=== PATIENT | male | born 1950 | race Caucasian/White ===

== ENCOUNTER 2017-04-30 05:41 | Outpatient (CLI) | payer MEDICARE, OTHER ==
[2017-04-30] MEDS ORDERED: RIVA1PAT TD (15:00)
[2017-04-30] MEDS ORDERED: OMG1KC PO (15:00)
[2017-04-30] MEDS ORDERED: VERA180C4 PO (15:00)
[2017-04-30] MEDS ORDERED: BUPR-168 PO (15:00)
[2017-04-30] MEDS ORDERED: LISI1TAB8 PO (15:00)
[2017-04-30] MEDS ORDERED: VITA1CAP PO (15:00)
[2017-04-30] MEDS ORDERED: ASPI-586 PO (15:00)
[2017-04-30] MEDS ORDERED: MEMA5TAB PO (15:00)
[2017-04-30] MEDS ORDERED: LEVO88TA54 PO (15:00)
== END 2017-04-30 15:06 ==
LOC: PREOP 05:41
PROVIDERS: ATTEND Surgery
DX: Z01.818 Encounter for other preprocedural examination (principal); Z12.11 Encounter for screening for malignant neoplasm of colon; Z86.010 Personal history of colon polyps; Z80.0 Family history of malignant neoplasm of digestive organs

== ENCOUNTER 2017-05-02 08:03 | Day surgery (SDC) | payer MEDICARE, OTHER ==
[~2017-05-02] VITALS: Ht 180.3 cm; Wt 109.8 kg
[~2017-05-02 08:03] MED LIST: ASPI-586 PO; BUPR-168 PO; LEVO88TA54 PO; LISI1TAB8 PO; MEMA5TAB PO; OMG1KC PO; RIVA1PAT TD; VERA180C4 PO; VITA1CAP PO
[2017-05-02] MEDS ORDERED: NS IV 500 ML 500 ML IV PRN (08:30)
[2017-05-02] MEDS ORDERED: LIDOCAINE JELLY 2% (XYLOCAINE) 5 ML TUBE MM PRN (08:30)
[2017-05-02 08:47] VITALS: BP 161/85
[2017-05-02] MEDS ORDERED: MIDAZOLAM 2 MG/2 ML (VERSED) VIAL ONE ×6 (09:46→10:02)
[2017-05-02] MEDS ORDERED: fentaNYL INJECTION 100 MCG/2 ML AMP ONE ×2 (09:46)
[2017-05-02] MEDS ORDERED: LIDOCAINE JELLY 2% (XYLOCAINE) 5 ML TUBE ONE (09:46)
[2017-05-02] MEDS: fentaNYL INJECTION 100 MCG/2 ML AMP IVP PRN ×2 (09:51→09:53)
[2017-05-02] MEDS: MIDAZOLAM 2 MG/2 ML (VERSED) VIAL IVP PRN ×6 (09:52→10:18)
--- NOTE | 2017-05-02 10:01 | Conscious Sedation/ASA ---
Conscious Sedation Pre-Proced Time Reviewed: 09:15 ASA Class: 2 Airway Mallampati Classification: (eek appropriate class) I. II. III, IV Lungs Heart ASA score ASA 1: a normal healthy patient ASA 2: a patient with a mild systemic disease (mid diabetes, controlled hypertension, obesity ASA 3: a patient with a severe systemic disease that limits activity (angina , COPD, prior Myocardial infarction) ASA 4: a patient with an incapacitating disease that is a constant threat to life (CHF, renal failure) ASA 5: a moribund patient not expected to survive 24 hrs. (ruptured aneurysm) ASA 6: a declared brain patient whose organs are being harvested. For emergent operations, add the letter E after the classification Grade 2 Sedation Plan: Analgesia, Amnesia, Plan communicated to team members, Discussed options with patient/fam, Discussed risks with patient/fam Note The patient is an appropriate candidate to undergo the planned procedure, sedation, and anesthesia. The patient immediately re-assessed prior to indication. MONA ARANDA MD May 02, 2017 10:01 am
--- NOTE | 2017-05-02 10:01 | Progress Note-Pre Operative ---
Pre-Operative Progress Note H&P Reviewed The H&P was reviewed, patient examined and no changes noted. Date Seen by Provider: May 02, 2017 Time Seen by Provider: 09:15 Date H&P Reviewed: May 02, 2017 Time H&P Reviewed: 09:15 Pre-Operative Diagnosis: hx polyp, family hx colon ca MONA ARANDA MD May 02, 2017 10:01 am
[2017-05-02] MEDS ORDERED: HYDROcodone/APAP 5 MG/325 MG (LORTAB) TAB PO PRN (10:15)
[2017-05-02] MEDS ORDERED: morphine INJ 10 MG/ML 1ML (SYR OR VIAL) IV PRN (10:15)
[2017-05-02] MEDS ORDERED: ACETAMINOPHEN 325 MG TABLET/CAPLET (TYLENOL) PO PRN (10:15)
[2017-05-02] MEDS ORDERED: ONDANSETRON 4 MG/2 ML (SDV) Z0FRAN IV PRN (10:15)
[2017-05-02 10:25] VITALS: BP 117/78
--- NOTE | 2017-05-02 10:46 | Progress Note-Post Operative ---
Post-Operative Progess Note Surgeon (s)/Competitive Intelligence Analyst (s) Surgeon MONA ARANDA MD Competitive Intelligence Analyst: none Pre-Operative Diagnosis hx polyp, family hx colon ca Post-Operative Diagnosis chronic stage 2 ext and int hemorrhoids, HP polyp descending colon x2, ascending colon. Procedure & Operative Findings Date of Procedure 05/02/17 Procedure Performed/Findings Colonoscopy with polypectomy Anesthesia Type CS Estimated Blood Loss Estimated blood loss (mL): minimal Specimens/Packing Specimens Removed descending polyp x2, ascending polyp x1 MONA ARANDA MD May 02, 2017 10:46 am
--- NOTE | 2017-05-02 10:48 | Discharge Inst-Surgical ---
D/C Lap Instructions-ROSI Follow Up 5 years Activity as tolerated High Fiber Diet 25g or more per day Avoid Alcohol, Caffeine, Spicy [place] and Acid foods. Drink 64 fluid oz or more of fluids per day. Symptoms to Report: Fever over 101 degree F, Nausea/Vomiting If any problems/questions: Contact your physician or go to Emergency Room MONA ARANDA MD May 02, 2017 10:48 am
[2017-05-02 10:55] VITALS: BP 119/74
[2017-05-02 11:30] VITALS: BP 119/74
--- NOTE | 2017-05-03 10:33 | PROCEDURE REPORT ---
PROCEDURE PHYSICIAN: MONA ARANDA DATE OF PROCEDURE: 05/02/2017 ATTENDING PRIMARY CARE PHYSICIAN: Dr. Bentley. PREOPERATIVE DIAGNOSIS: 1. Personal history of colon polyps. 2. Family history of colon cancer. POSTOPERATIVE DIAGNOSES: 1. Chronic, stage II external and internal hemorrhoids. 2. Two hyperplastic polyps of the descending colon each approximately 1 to 2 mm in size. 3. Small pedunculated polyp of the ascending colon, approximately 2 mm in size. DISPOSITION: The patient tolerated the procedure well. Mr. Alex Cm is a 66-year-old male in need of a follow-up colonoscopy. He has had 3 colonoscopies in the past and reports that each of those polyps were identified, biopsied and found to be benign. He does report a family history of colon cancer with his mother having the disease and being diagnosed in her 80s. He reports that for the most part he is doing well and does not report any major issues with diarrhea nor constipation, as well as no red blood per rectum nor any dark tarry stools. The patient was brought to the endoscopy suite, laid in the left lateral decubitus position. After adequate IV pain and sedative medications and conscious sedation anesthesia, a digital rectal examination was performed. Mild chronic, stage II external and internal hemorrhoids were identified which were not actively edematous or inflamed and no bleeding. Normal sphincter tone was felt and there were no palpable masses. The prostate was palpable and appeared normal. The endoscope was then intubated into the anus and the rectum gently insufflated. The endoscope was then advanced through the valves of Lew of the rectum with no polyps or any neoplasms identified. The endoscope was then advanced through the sigmoid colon where no diverticulosis identified. We then proceeded to the descending colon and at approximately the splenic flexure two hyperplastic polyps, which were adjacent to each other identified. These were small and approximately 1 to 2 mm in size and appeared benign. Both of these were biopsied and destroyed using forceps and electrocautery with visualization of good hemostasis. The endoscope was then advanced through the transverse colon and into the ascending colon. At the ascending colon a small pedunculated polyp identified. This was biopsied and removed at its stalk using forceps and electrocautery with visualization of good hemostasis. The endoscope was then advanced through the cecum which was normal. The endoscope was slowly withdrawn while taking a second look and suctioning of residual air with no additional findings. The patient tolerated the procedure well. We will recommend continued medical management with a high fiber diet with at least 30 grams of fiber per day, as well as at least 64 fluid ounces of water daily to promote soft stools on a daily basis. Due to his personal history of polyps as well as family history of colon cancer, we will recommend a follow-up colonoscopy in approximately 5 years. Job ID: [id number] Dictated Date: 05/02/2017 10:51:21 Intelligence Agent Date: 05/03/2017 10:24:07 / nader
== END 2017-05-02 11:30 | disposition home or self-care (01) ==
LOC: ENDO 08:03
PROVIDERS: ATTEND Surgery
DX: K63.5 Polyp of colon (principal); K64.1 Second degree hemorrhoids; Z80.0 Family history of malignant neoplasm of digestive organs; I10 Essential (primary) hypertension; E03.9 Hypothyroidism, unspecified; F03.90 Unspecified dementia, unspecified severity, without behavioral disturbance, psychotic disturbance, mood disturbance, and anxiety; Z79.899 Other long term (current) drug therapy

== ENCOUNTER 2019-11-10 09:51 | Outpatient (CLI) | payer OTHER ==
[~2019-11-10] VITALS: Ht 180 cm; Wt 116.6 kg
[~2019-11-10 09:51] MED LIST changes: +LISI1TAB25 PO; -LISI1TAB8 PO
[2019-11-10 10:11] VITALS: BP 135/72
== END 2019-11-10 15:00 | disposition home or self-care (01) ==
LOC: PREOP 09:51
PROVIDERS: ATTEND Podiatrist Foot & Ankle Surgery
DX: Z01.818 Encounter for other preprocedural examination (principal)
CPT/HCPCS: 87081

== ENCOUNTER 2019-11-14 06:00 | Day surgery (SDC) | payer OTHER ==
[~2019-11-14] VITALS: Ht 118 cm; Wt 116.6 kg
[2019-11-14] VITALS (12 sets, daily range): BP systolic 111–177; BP diastolic 69–85
[2019-11-14] MEDS ORDERED: LACTATED RINGERS 1,000 ML IV PRN (06:05)
[2019-11-14] MEDS ORDERED: ceFAZolin INJECTION 1,000 MG in WATER (STERILE) FOR INJECTION 10 ML IV ONE (06:15)
[2019-11-14] MEDS ORDERED: proPOfol 200 MG/20 ML (DIPRIVAN) VIAL IV ONE (06:51)
[2019-11-14] MEDS ORDERED: MIDAZOLAM 2 MG/2 ML (VERSED) VIAL ONE (06:51)
[2019-11-14] MEDS ORDERED: LIDOCAINE PF 2% 5 ML (XYLOCAINE) VIAL ONE (06:51)
[2019-11-14] MEDS ORDERED: SEVOFLURANE (ULTANE) 15 ML INHAL SOLN ONE ×2 (06:51→10:16)
[2019-11-14] MEDS ORDERED: fentaNYL INJECTION 100 MCG/2 ML AMP ONE ×2 (06:51→08:32)
[2019-11-14] MEDS ORDERED: ONDANSETRON 4 MG/2 ML (SDV) Z0FRAN ONE (06:51)
[2019-11-14] MEDS ORDERED: BUPIVACAINE 0.5% 30 ML (SENSORCAINE) VIAL ONE (07:07)
[2019-11-14] MEDS ORDERED: HYDROmorphone 2 MG/ML VIAL (DILAUDID) ONE (09:13)
[2019-11-14] MEDS ORDERED: DEXAMETHASONE 10 MG/ML (DECADRON) 1 ML VIAL ONE (10:15)
--- NOTE | 2019-11-14 10:53 | Progress Note-Pre Operative ---
Pre-Operative Progress Note H&P Reviewed The H&P was reviewed, patient examined and no changes noted. Date Seen by Provider: Nov 14, 2019 Time Seen by Provider: : Date H&P Reviewed: Nov 14, 2019 Time H&P Reviewed: : Pre-Operative Diagnosis: Hallux Valgus left CHARISSE VALADEZ DPM Nov 14, 2019 10:53
[2019-11-14] MEDS ORDERED: LACTATED RINGERS 1,000 ML IV SCH (10:58)
--- NOTE | 2019-11-14 10:58 | Progress Note-Post Operative ---
Post-Operative Progess Note Surgeon (s)/Chief Clerk (s) Surgeon CHARISSE VALADEZ DPM Chief Clerk: none Pre-Operative Diagnosis Hallux Valgus left Post-Operative Diagnosis Same Procedure & Operative Findings Date of Procedure 11/14/19 Procedure Performed/Findings Lapidus-Aris bunionectomy, left Anesthesia Type General Estimated Blood Loss Estimated blood loss (mL): Minimal Specimens/Packing Specimens Removed Soft tissue from left 1st MTPJ (Tophi) CHARISSE VALADEZ DPM Nov 14, 2019 10:58
[2019-11-14] MEDS ORDERED: HYDROcodone/APAP 5 MG/325 MG (LORTAB) TAB PO PRN (11:00)
[2019-11-14] MEDS ORDERED: morphine INJ 10 MG/ML 1ML (SYR OR VIAL) IVP ONE (11:00)
[2019-11-14] MEDS ORDERED: HYDROmorphone 2 MG/ML VIAL (DILAUDID) IV ONE (11:00)
[2019-11-14] MEDS ORDERED: ONDANSETRON 4 MG/2 ML (SDV) Z0FRAN IVP PRN (11:00)
[2019-11-14] MEDS ORDERED: ACHD5005 PO ×2 (11:01→12:09)
[2019-11-14] MEDS ORDERED: CEPH500C PO (11:01)
--- NOTE | 2019-11-14 12:11 | Diagnostic Imaging Report ---
INDICATION: Undergoing foot surgery. TECHNIQUE: Two intraprocedural images left foot. FINDINGS/ IMPRESSION: The hospital radiology department provided fluoroscopic imaging for the clinical service in support of an interventional procedure. A radiologist was not involved in the procedure. Please reference the operating provider's procedure note. FLUOROSCOPY TIME: 14.4 seconds. Intraoperative imaging demonstrates surgical changes of the first digit. This includes arthrodesis of plate and screws across the first tarsometatarsal digit. An additional pin also transfixes the joint. Alignment appears to be anatomic. Advanced degenerative changes about the first MTP joint. Small amount of gas collection is noted in this region. Dictated by: Dictated on workstation # [id number]
--- NOTE | 2019-11-14 12:33 | Diagnostic Imaging Report ---
INDICATION: Postoperative. TECHNIQUE: Two views of the left foot. CORRELATION STUDY: None. FINDINGS: Postop changes with placement of a plate and multiple screws across the first tarsometatarsal articulation. Alignment appears to be near-anatomic. Additional osteotomy changes at the proximal phalanx of the great toe with a single cerclage wire along its medial aspect. Alignment is generally stable. Partial resection of the medial first metatarsal head. Some bone fragmentation noted in and around the first MTP joint. Additional degenerative changes through the tarsometatarsal articulations. Mildly prominent plantar calcaneal spur. IMPRESSION: 1. Postoperative changes of the first digit. Dictated by: Dictated on workstation # [id number]
--- NOTE | 2019-11-14 12:47 | Physical Therapy Ortho Eval ---
PT Orthopedic Evaluation Type of Surgery hallux valgus left foot Prior Level of Function Current Living Status: Spouse Locomotion (Upon Admit): Independent Established Durable Medical Eq: Front Wheeled Walker Subjective Subjective Agrees to PT. Reprots he has crutches, walker and a knee scooter at home. Plans to use the walker and knee scooter. Entry Into Home: Stairs With Railing Steps Into Home: 6 Steps Inside Home: 0 Motor Control Motor Control: Motor Control WNL ROM ROM: WFL Strength Strength: WFL Transfer Pt able to complete bed mobiltiy without assist. Pt is SBA with sit to stand transfers. present and voices she will be available to assist as needed. Gait Gait Assistive Device: FWW Right Lower Extremity: Right Weight Bearing Status RLE: Full Weight Bearing Left Lower Extremity: Left Weight Bearing Status LLE: Non Weight Bearing (heel contact for balance only) Summary/Comments pt able to hop 50 ft with FWW with SBA and maintains NWB status. Pt and educated in stair training. Pt hopped up/down 3 steps with handrail right and walker left to go up; CGA provided but no kevin LOB noted. Pt and verbalized they felt they could manage. Their son will be home later and if necessary, they will wait for him to try to enter the house. Treatment Rendered Treatment: Gait Train, Step Train Assessment/Goals Goal Time Frame: 1 Visit Safe Ambulation: Yes Slightly unsteady due to new NWB status but no kevin LOB noted. Gait belt given to the patient;s , she reports she has used them before. Reports she will use it if needed. In addition, for the bulk of mobility, pt plans to use knee scooter. Plan Treatment Plan: Discharge Time Time In: 1210 Time Out: 1240 Total Billed Treatment Time: 30 Billed Treatment Time visit EVM 30 GIOVANI KANG PT Nov 14, 2019 12:47
--- NOTE | 2019-11-14 13:17 | Anesthesia-General Post-Op ---
General Patient Condition Mental Status/LOC: Same as Preop Cardiovascular: Satisfactory Nausea/Vomiting: Absent Respiratory: Satisfactory Pain: Controlled Complications: Absent Post Op Complications Complications None Follow Up Care/Instructions Patient Instructions None needed. Anesthesia/Patient Condition Patient Condition Patient was seen this morning after the procedure and he was doing well, no complaints, stable vital signs, no apparent adverse anesthesia problems. KAYLEE LYNN DO Nov 14, 2019 13:17
--- NOTE | 2019-11-14 16:22 | OPERATIVE REPORT ---
DATE OF SERVICE: 11/14/2019 SURGEON: Yazmin Valadez DPM PREOPERATIVE DIAGNOSIS: Hallux abductovalgus metatarsal primus varus, left foot. POSTOPERATIVE DIAGNOSIS: Hallux abductovalgus metatarsal primus varus, left foot. PROCEDURE: Modified Lapidus Aris bunionectomy, left foot. WOUND CLASS: Clean. ANESTHESIA: General. HEMOSTASIS: Pneumatic thigh tourniquet at 300 mmHg. INDICATIONS: This 68-year-old presents complaining of a painful left foot. It is a painful bunion for several years and getting progressively worse. He does have a history of gout. Conservative therapy is met with unsatisfactory results and the patient is agreeable to surgical intervention after risks and complications were discussed at length. No guarantees were extended to the patient and he is willing to proceed. DESCRIPTION OF PROCEDURE: The patient was brought back to the operating room table, placed in secure supine position. Appropriate timeout was performed. General anesthetic was then induced. The left foot was prepped and draped in normal sterile manner. A thigh tourniquet was placed on the left lower extremity over several layers of padding. The left foot was then anesthetized utilizing 10 mL of 0.5% Marcaine injected in a Pike block. Attention was then directed to the dorsal aspect of the left first metatarsal cuneiform joint where a 6 cm longitudinal linear incision was created. The incision was deepened in the same plane with great care to identify and retract all vital neurovascular structures. All the necessary blood vessels were cauterized as encountered. The incision was deepened down to the capsular tissue to the first metatarsal medial cuneiform joint, medial to the extensor hallucis longus tendon. The incision was deepened in the same plane down to the joint itself where two bone cuts were created, first bone cut was to the base of the first metatarsal perpendicular to the long axis of the first metatarsal. The second cut was to the distal medial cuneiform and it was cut perpendicular to the long axis of the second metatarsal, but with a biased from smaller wedge dorsally to a larger wedge plantarly of approximately 2 mm, allowing for some plantar flexion of the first metatarsal as well as correction of the first intermetatarsal angle. Once the bone fragments were articular cartilage and bone fragments were removed. Fenestration was performed to the base of the first metatarsal and medial cuneiform. It was found that there is going to be inadequate length noted on x-ray and a bone graft allograft was supplied from [employer]. It was an 8 mm width of graft excellent realignment of the first ray was noted on intraoperative x-ray. Temporary fixation was applied. The [employer] Lapidus small span plate was a 4-hole was applied to the arthrodesis site. The most proximal screws were 3.5 locking screws of 18 and 20 mm of length. Next, an interfrag screw was applied, cannulated 3.5 screw of 48 mm of length driven from distal to plantar proximal with excellent compression noted across the joint. The distal nonlocking 3.5 screw was 16 mm of length applying additional compression across the arthrodesis site. The final two distal screws were locking 3.5 screws of 18 and 20 mm of length. The wound was flushed with copious amounts of normal saline and closed in layers. The deep closure was performed with 3-0 Vicryl, superficial with 4-0 Vicryl and skin closed with 4-0 Prolene in a horizontal mattress type stitch. Attention was then directed to the dorsal aspect of the left first metatarsophalangeal joint where a 6 cm longitudinal linear incision was created. The incision was deepened in the same plane with great care to identify and retract all vital neurovascular structures. Only necessary blood vessels were cauterized as encountered. A longitudinal capsulotomy was performed exposing copious amounts of white chalky material grossly identified to be tophi. Much of the tophi was debrided as possible. A large medial eminence of the first metatarsal head was reduced with a power sagittal saw and further contoured and smoothed with power cookie. A blunt dissection was carried out to the first intermetatarsal space with a lateral capsulorrhaphy performed as well as release of the conjoint tendon of the adductor hallucis. Attention was then directed to the dorsal aspect of the proximal phalanx, left hallux where a subperiosteal dissection was carried out. A wedge of bone was resected with the base medial and the lateral cortices held intact. Once the wedge of bone was resected, the gap closed and there is improvement to the hallux alignment and the transverse plane. Next, two commercial drone pilot holes were created to the dorsal medial aspect of the first digit proximal phalanx osteotomy. A 28-gauge monofilament wire was then passed through the commercial drone pilot hole securing the osteotomy in a closed position. Excellent bony apposition and fixation was appreciated at this time. The wound was flushed with copious amounts of normal saline throughout the procedure and closure was then performed in layers. Deep closure was performed with 3-0 Vicryl, superficial with 4-0 Vicryl, skin closed with 4-0 Prolene in a horizontal mattress type stitch. Postoperative injection consisted of 10 mL of 0.5% Marcaine plain injected in a Pike block as well as 10 mg dexamethasone injected into the first metatarsophalangeal joint area. Postoperative dressing consisted of Betadine soaked Adaptic, sterile 4 x 4, sterile Kerlix all secured with Coban wrap. The patient tolerated the anesthesia and procedure well, was transported from the operating room to the recovery area with vital signs stable and vascular status intact to all digits of the left foot. The patient is to follow up in my office in 10 days' period of time or sooner if necessary. He was given a prescription for Keflex and Vicodin. Job ID: [id number] DocumentID: [id number] Dictated Date: 11/14/2019 12:06:38 Strike On Machine Operator Date: 11/14/2019 16:20:51 Dictated By: YAZMIN VALADEZ DPM
== END 2019-11-14 13:00 | disposition home or self-care (01) ==
LOC: SDC 06:00
PROVIDERS: ATTEND Podiatrist Foot & Ankle Surgery
DX: M20.12 Hallux valgus (acquired), left foot (principal); I10 Essential (primary) hypertension; G47.33 Obstructive sleep apnea (adult) (pediatric); E03.9 Hypothyroidism, unspecified; E66.9 Obesity, unspecified; F43.10 Post-traumatic stress disorder, unspecified; Z68.35 Body mass index [BMI] 35.0-35.9, adult; Z99.89 Dependence on other enabling machines and devices; Z87.891 Personal history of nicotine dependence; Z79.82 Long term (current) use of aspirin; Z79.899 Other long term (current) drug therapy
CPT/HCPCS: 73620; 87081

== ENCOUNTER 2022-02-22 05:35 | Outpatient (CLI) | payer MEDICARE ==
[~2022-02-22] VITALS: Ht 180.3 cm; Wt 119.9 kg
[~2022-02-22 05:35] MED LIST changes: +ACHD5005 PO; +CEPH500C PO; -LISI1TAB25 PO; +LISI1TAB46 PO
[2022-02-22] MEDS ORDERED: ALLO100T PO (14:38)
[2022-02-22] MEDS ORDERED: ASPI-999 PO (14:38)
== END 2022-02-22 16:34 | disposition home or self-care (01) ==
LOC: PREOP 05:35
PROVIDERS: ATTEND Surgery
DX: Z01.818 Encounter for other preprocedural examination (principal)

== ENCOUNTER 2022-03-01 08:50 | Day surgery (SDC) | payer MEDICARE, OTHER ==
--- NOTE | 2022-02-28 11:15 | HISTORY AND PHYSICAL ---
DATE OF SERVICE: ATTENDING PRIMARY CARE PHYSICIAN: Dr. Matheus Sheridan. PROCEDURE DATE: 03/01/2022. HISTORY OF PRESENT ILLNESS: The patient is a 71-year-old male who is known to us. He was seen in 04/2017 for a colonoscopy. At that time, he was found to have chronic stage III external and internal hemorrhoids, polyp of the distal descending, proximal descending and ascending colon. These were biopsied and consistent with tubular adenomas. On today's visit, he reports that he is in need of a screening colonoscopy. His last colonoscopy was 5 years ago, and he does report a family history of colon cancer with his mother having the disease in her 80s. He also reports a history of polyps in the past on his previous colonoscopies. He denies any diarrhea or constipation as well as no red blood in his stool. He denies any abdominal pain. PAST MEDICAL HISTORY: Hypertension, hypothyroidism, dementia, gout, obstructive sleep apnea. PAST SURGICAL HISTORY: Bilateral cataracts in 2012, lumbar spine decompression surgery 2017, bunionectomy and ORIF of the foot 2019. ALLERGIES: No known drug allergies. MEDICATIONS: Vitamin B complex, fish oil, aspirin 325 mg daily, rivastigmine 4.6 mg daily, bupropion 75 mg b.i.d., lisinopril/hydrochlorothiazide 20/12.5 b.i.d., verapamil 180 mg daily, levothyroxine 88 mcg daily, allopurinol 100 mg daily. SOCIAL HISTORY: Previous for tobacco smoke, quit in 1968. Social for alcohol. FAMILY HISTORY: Father, diabetes. Mother, colon cancer. Sister, ovarian cancer. Brother, lung cancer, myocardial infarction. VITAL SIGNS: Blood pressure is 132/78. Current weight 264.3 pounds, height 5 feet 11 inches. REVIEW OF SYSTEMS: Well-nourished male in no acute distress. He is not experiencing any shortness of breath or difficulty breathing. No chest pain, palpitations or diaphoresis. No nausea, vomiting or abdominal pain. No diarrhea or constipation. No red blood per rectum. No dark tarry stools. No fever or chills. No recent inadvertent weight loss. All other review of systems negative. PHYSICAL EXAMINATION: CHEST: Clear. Good breath sounds bilaterally. HEART: Regular, no murmur. EXTREMITIES: No lower extremity edema. Negative Homans sign. HEENT: No scleral icterus. NECK: No cervical lymphadenopathy. ABDOMEN: Soft, nontender, nondistended. SKIN: Warm, dry and pink. NEUROLOGIC: Awake, alert and oriented x3. ASSESSMENT AND PLAN: A 71-year-old male with a personal history of colon polyps as well as a family history of colon cancer with his mother having the disease. At this time, he does need a screening colonoscopy and we will proceed with scheduling him for a screening colonoscopy. Job ID: [id number] DocumentID: [id number] Dictated Date: 02/28/2022 10:44:21 Aerospace Quality Engineer Date: 02/28/2022 11:14:40 Dictated By: SARAH SCHMIDT APRN
[~2022-03-01] VITALS: Ht 180.3 cm; Wt 119.9 kg
[~2022-03-01 08:50] MED LIST changes: +ALLO100T PO; +ASPI-999 PO
[2022-03-01] MEDS ORDERED: LACTATED RINGERS 1,000 ML IV STA (08:51)
[2022-03-01] MEDS ORDERED: LIDOCAINE JELLY 2% 6 ML SYRINGE MM PRN (09:00)
[2022-03-01 09:15] VITALS: BP 141/75
[2022-03-01] MEDS ORDERED: PROPOFOL INJECTION 50 ML IV ONE (09:18)
--- NOTE | 2022-03-01 10:40 | Progress Note-Pre Operative ---
Pre-Operative Progress Note H&P Reviewed The H&P was reviewed, patient examined and no changes noted. Date Seen by Provider: March 01, 2022 Time Seen by Provider: 10:00 Date H&P Reviewed: March 01, 2022 Time H&P Reviewed: 10:00 Pre-Operative Diagnosis: screening/FH MONA ARANDA MD March 01, 2022 10:40
--- NOTE | 2022-03-01 10:41 | Discharge Inst-Surgical ---
D/C Lap Instructions-ROSI Follow Up Activity as tolerated High Fiber Diet 25g or more per day Avoid Alcohol, Caffeine, Spicy [place] and Acid foods. Drink 64 fluid oz or more of fluids per day. Symptoms to Report: Fever over 101 degree F, Nausea/Vomiting If any problems/questions: Contact your physician or go to Emergency Room MONA ARANDA MD March 01, 2022 10:41
[2022-03-01] MEDS ORDERED: ONDANSETRON 4 MG/2 ML (SDV) Z0FRAN IVP PRN (10:45)
[2022-03-01] MEDS ORDERED: ONDANSETRON 4 MG (ZOFRAN) ORAL DISSOLVE TAB PO PRN (10:45)
[2022-03-01 11:10] VITALS: BP 110/63
--- NOTE | 2022-03-01 11:12 | Anesthesia-General Post-Op ---
MAC Patient Condition Mental Status/LOC: Same as Preop Cardiovascular: Satisfactory Nausea/Vomiting: Absent Respiratory: Satisfactory Pain: Controlled Complications: Absent Post Op Complications Complications None Follow Up Care/Instructions Patient Instructions None needed. Anesthesiology Discharge Order Discharge Order Patient is doing well, no complaints, stable vital signs, no apparent adverse anesthesia problems. No complications reported per nursing. GUSTAVO JUSTICE CRNA March 01, 2022 11:12
[2022-03-01 11:15] VITALS: BP_SYST 110; BP_SYST 117; BP_DIAS 65; BP_DIAS 67
[2022-03-01 11:35] VITALS: BP 110/67
[2022-03-01 11:46] VITALS: BP 110/67
--- NOTE | 2022-03-01 12:24 | Progress Note-Post Operative ---
Post-Operative Progess Note Surgeon (s)/Experimental Mechanic [employer] (s) Surgeon MONA ARANDA MD Experimental Mechanic [employer]: none Pre-Operative Diagnosis screening/FH Post-Operative Diagnosis mild chronic stage 2 ext and int hemorrhoids, small polyp cecum(2-3mm). Procedure & Operative Findings Date of Procedure 03/01/22 Procedure Performed/Findings colonoscopy with polypectomy with forcep and electrocautery. Anesthesia Type mac Estimated Blood Loss Estimated blood loss (mL): minimal Specimens/Packing Specimens Removed cecal polyp MONA ARANDA MD March 01, 2022 12:24
--- NOTE | 2022-03-01 18:55 | OPERATIVE REPORT ---
DATE OF SERVICE: 03/01/2022 ATTENDING PRIMARY CARE PHYSICIAN: Dr. Matheus Sheridan. PREOPERATIVE DIAGNOSIS: Screening colonoscopy with family history of colon cancer. POSTOPERATIVE DIAGNOSES: Mild chronic stage II external and internal hemorrhoids, small polyp of the cecum approximately 2 mm in size. PROCEDURE: Colonoscopy with polypectomy with forceps and electrocautery. SURGEON: Mona Aranda MD ANESTHESIA: Monitored anesthesia care. ESTIMATED BLOOD LOSS: Minimal. FINDINGS: Mild chronic stage II external and internal hemorrhoids, small polyp of the cecum approximately 2 mm in size. DISPOSITION: The patient tolerated the procedure well. INDICATIONS: The patient is a 71-year-old male referred over to us for screening colonoscopy. His last colonoscopy was 04/2017. He was found to have mild hemorrhoids as well as a polyp of the distal descending and proximal descending as well as ascending colon, which were all tubular adenomas. He does also have a first-degree family history of colon cancer with his mother having the disease and being diagnosed in her 80s. DESCRIPTION OF PROCEDURE: The patient was brought to the endoscopy suite, laid in the left lateral decubitus position. After adequate IV pain and sedative medications and monitored anesthesia care, a digital rectal examination was performed. Mild chronic stage II external and internal hemorrhoids were identified, which were not actively edematous nor inflamed and no bleeding. Normal sphincter tone was felt and there were no palpable masses. Prostate gland was palpable and appeared normal. The endoscope was then intubated into the anus and rectum gently insufflated. The endoscope was then advanced through the valves of Lew of the rectum with no polyps or any neoplasms identified. Through the sigmoid colon, no diverticulosis identified. We then proceeded through the descending, transverse and ascending colon to the cecum, where a small polyp identified of the cecum approximately 2 to 3 mm in size and this was biopsied and destroyed using forceps and electrocautery with visualization of good hemostasis. The endoscope was then slowly withdrawn while taking a second look and suctioning of residual air with no additional findings. The patient tolerated the procedure well. We will await the biopsy results; however, this is likely another tubular adenoma and if this is confirmed, he does not need another colonoscopy for another five years. Job ID: [id number] DocumentID: [id number] Dictated Date: 03/01/2022 11:15:14 Senior Sql Database Developer Date: 03/01/2022 18:54:46 Dictated By: MONA ARANDA MD
== END 2022-03-01 11:45 | disposition home or self-care (01) ==
LOC: ENDO 08:50
PROVIDERS: ATTEND Surgery
DX: Z12.11 Encounter for screening for malignant neoplasm of colon (principal); D12.0 Benign neoplasm of cecum; K64.1 Second degree hemorrhoids; K64.4 Residual hemorrhoidal skin tags; E66.9 Obesity, unspecified; G47.33 Obstructive sleep apnea (adult) (pediatric); Z99.89 Dependence on other enabling machines and devices; Z68.37 Body mass index [BMI] 37.0-37.9, adult; Z80.0 Family history of malignant neoplasm of digestive organs; Z87.891 Personal history of nicotine dependence
CPT/HCPCS: 88305

== ENCOUNTER 2022-04-29 01:46 | Emergency (ER) | payer MEDICARE, OTHER ==
[~2022-04-29] VITALS: Ht 178 cm; Wt 113.0 kg
[2022-04-29 01:55] VITALS: BP 176/84
--- NOTE | 2022-04-29 02:22 | ED Upper Extremity ---
General Chief Complaint: Upper Extremity Stated Complaint: R SHOULDER PAIN Nursing Triage Note: INTERMITTANT RIGHT LATERAL SHOULDER PAIN X3 DAYS. DENIES INJURY Source: patient, spouse ( DOES ALL TALKING FOR PT) History of Present Illness Date Seen by Provider: Apr 29, 2022 Time Seen by Provider: 02:08 Initial Comments PT ARRIVES VIA POV FROM HOME WITH C/O RIGHT SHOULDER PAIN SINCE SUNDAY EVENING 04/25/22 NO KNOWN INJURY OR UNUSUAL ACTIVITY NO PARESTHESIAS OR MOTOR DEFICITS STATES IT WAS BETTER DURING THE DAY TODAY, THEN GOT BAD AGAIN TONIGHT NO RELIEF WITH TYLENOL PM TONIGHT HAS BEEN PUTTING ICE AND HEAT ON IT WITHOUT RELIEF. NO PRIOR INJURY TO THIS SHOULDER, BUT HAD SIMILAR PAIN SEVERAL YEARS AGO--NO DX BUT TREATED WITH STEROID INJECTION IN THE JOINT NO SIGNIFICANT PROBLEMS SINCE THEN PT HAD A COVID BOOSTER ON SUNDAY IN HIS LEFT ARM AND LEFT ARM DOES NOT HURT NO OTHER JOINTS HURT NO FEVER OR ILLNESS OTHERWISE PT HAS HTN, GOUT, DEMENTIA, THYROID DISEASE PCP; DR. BORDEN--HAS AN APPOINTMENT ON Sunday05/01/22 ALSO GOES TO [facility] IN [place] Allergies and Home Medications Allergies Coded Allergies: No Known Drug Allergies (Unverified , 11/10/19) Patient Home Medication List Home Medication List Reviewed: Yes Allopurinol (Allopurinol) 100 Mg Tablet, 100 MG PO DAILY, (Reported) Entered as Reported by: KEITH MCFADDEN on 02/22/22 1438 Aspirin (Aspirin) 81 Mg Tab.chew, 81 MG PO DAILY, (Reported) Entered as Reported by: KEITH MCFADDEN on 02/22/22 1438 Bupropion HCl (Bupropion HCl) 75 Mg Tablet, 75 MG PO BID, (Reported) Entered as Reported by: MILENA LUIS on 04/30/17 1500 Hydrocodone/Acetaminophen (Hydrocodone-Acetamin 5-325 mg) 5 Mg-325 Mg Tablet, 1 EACH PO Q4-6 HOURS PRN for PAIN Prescribed by: BETTYE MURPHY on 04/29/22 0248 Levothyroxine Sodium (Levothyroxine Sodium) 88 Mcg Tablet, 88 MCG PO DAILY, (Reported) Entered as Reported by: MILENA LUIS on 04/30/17 1500 Lisinopril/Hydrochlorothiazide (Lisinopril-Hctz 20-12.5 mg Tab) 1 Each Tablet, 1 EACH PO DAILY, (Reported) Entered as Reported by: MILENA LUIS on 04/30/171499 Methylprednisolone (Medrol) 4 Mg Tab.ds.pk, 4 MG PO UD Prescribed by: BETTYE MURPHY on 04/29/22 0248 Cassandra 3 Polyunsat Fatty Acids (Fish Oil 1,000 mg Capsule) 1,000 Mg Cap, 2,000 MG PO DAILY, (Reported) Entered as Reported by: MILENA LUIS on 04/30/171499 Rivastigmine (Exelon) 4.6 Mg Patch, 4.6 MG TD DAILY, (Reported) Entered as Reported by: MILENA LUIS on 04/30/171499 Verapamil HCl (Verapamil Sr) 180 Mg Cap24h.pel, 180 MG PO DAILY, (Reported) Entered as Reported by: MILEAN LUIS on 04/30/171499 Vitamin B Complex (Vitamin B Complex) 1 Each Capsule, 1 EACH PO DAILY, (Re ported) Entered as Reported by: MILENA LUIS on 04/30/171499 Review of Systems Constitutional: no symptoms reported EENTM: no symptoms reported Respiratory: no symptoms reported Cardiovascular: no symptoms reported Gastrointestinal: no symptoms reported Genitourinary: no symptoms reported Musculoskeletal: No back pain, No neck pain; other (PER HPI) Skin: no symptoms reported; No rash Psychiatric/Neurological: No Symptoms Reported Past Hfljlak-Dnawwf-Pwzaas Hx Patient Social History Tobacco Use?: No Substance use?: No Alcohol Use?: No Pt feels they are or have been: No Immunizations Up To Date PED Vaccines UTD: No First/Initial COVID19 Vaccinat: DECEMBER 2020 Second COVID19 Vaccination Vignesh: JANUARY 2021 Third COVID19 Vaccination Date: NO Seasonal Allergies Seasonal Allergies: Yes (MILD) Past Medical History Surgery/Hospitalization HX: FOOT, BACK GOUT, HTN, HYPOTHRYOIDISM, DEPRESSION Surgeries: Yes (CATARACTS- BILAT, LUMBAR SPINE, BUNIONECTOMY:COLONOSCOPIES) Eye Surgery, Orthopedic Respiratory: Yes Sleep Apnea Currently Using CPAP: Yes Cardiac: Yes Hypertension Neurological: Yes Dementia Reproductive Disorders: No Sexually Transmitted Disease: No HIV/AIDS: No Genitourinary: No Gastrointestinal: Yes Chronic Constipation, Polyps Musculoskeletal: Yes Arthritis, Gout Endocrine: Yes Hypothyroidsim HEENT: Yes (READING GLASSES, PARTIAL PERMANENT DENTURES) Cataract Loss of Vision: Bilateral Hearing Impairment: Hard of Hearing, Bilateral Hearing Aide Cancer: No Psychosocial: Yes PTSD Integumentary: No Blood Disorders: No Adverse Reaction/Blood Tranf: No (N/A) Physical Exam Vital Signs Vital Signs - First Documented 04/29/22 01:55 Temp 36.9 Pulse 76 Resp 16 B/P (MAP) 176/84 (114) Pulse Ox 95 O2 Delivery Room Air Capillary Refill : Less Than 3 Seconds Height, Weight, BMI Height: 5'11.00" Weight: 242lbs. 0.0oz. 109.552645em; 35.00 BMI Method: General Appearance: WD/WN, no apparent distress, other (FLAT AFFECT. DOES NOT APPEAR TO BE IN ANY DISCOMFORT OR DISTRESS) Neck: normal inspection Cardiovascular: normal peripheral pulses, regular rate, rhythm Respiratory: chest non-tender, normal breath sounds Gastrointestinal: soft Back: normal inspection, no CVA tenderness, no vertebral tenderness Shoulder: bone tenderness, limited ROM (DUE TO PAIN ), pain, soft tissue tenderness, swelling (SLIGHT SWELLING TO SHOULDER ) Elbow/Forearm: normal inspection Wrist: Yes normal inspection Hand: normal inspection Neurologic/Tendon: normal sensation Neurologic/Psychiatric: logging worker II-XII nml as tested, no motor/sensory deficits, alert, oriented x 3 (POOR MEMORY), other (FLAT AFFECT) Skin: normal color, warm/dry; No rash Procedures/Interventions Splinting and Joint Reduction : Arm Sling: [place] Progress/Results/Core Measures Results/Orders My Orders Orders - BETTYE MURPHY DO Shoulder, Right, 3 Views (04/29/22 02:16) Ed Ortho/Other Supplies Order (04/29/22 02:41) Rx-Hydrocodone/Apap 5-325 Mg (Rx-Vicodin (04/29/22 02:45) Medications Given in ED Current Medications Medications Dose Ordered Sig/Yasmeen Route Start Time Stop Time Status Last Admin Dose Admin Acetaminophen/ Hydrocodone Bitart 1 ea Q4H PRN PO 04/29/22 02:45 04/29/22 02:55 DC 04/29/22 02:50 1 EA Vital Signs/I&O 04/29/22 01:55 Temp 36.9 Pulse 76 Resp 16 B/P (MAP) 176/84 (114) Pulse Ox 95 O2 Delivery Room Air Blood Pressure Mean: 114 Diagnostic Imaging Comments XRAYS RIGHT SHOULDER--DEGENERATIVE CHANGES, NO ACUTE PROCESS, PENDING RADIOLOGIST REVIEW Reviewed: Reviewed by Me Departure Impression Primary Impression: Right shoulder pain Disposition: HOME, SELF-CARE Condition: Stable Departure-Patient Inst. Decision time for Depature: 02:45 Referrals: ANTONIA BORDEN MD (PCP) Primary Care Physician KIRILL BLUNT (Family) Primary Care Physician Patient Instructions: How to Use a Shoulder Sling ED, Shoulder Pain ED Add. Discharge Instructions: USE ICE AND / OR HEAT TO THE AREA AT 20 MINUTE INTERVALS WEAR SLING NEEDED FOR COMFORT KEEP YOUR APPOINTMENT ON SUNDAY WITH DR. BORDEN. All discharge instructions reviewed with patient and/or family. Voiced understanding. Scripts Methylprednisolone (Medrol) 4 Mg Tab.ds.pk 4 MG PO UD for 6 Days, #21 PKG PER DOSE PACK INSTRUCTIONS Prov: BETTYE MURPHY DO 04/29/22 Hydrocodone/Acetaminophen (Hydrocodone-Acetamin 5-325 mg) 5 Mg-325 Mg Tablet 1 EACH PO Q4-6 HOURS PRN for PAIN, #20 TAB Prov: BETTYE MURPHY DO 04/29/22 BETTYE MURPHY DO Apr 29, 2022 02:22
[2022-04-29] MEDS ORDERED: METH4TAB PO (02:48)
[2022-04-29] MEDS ORDERED: ACHD5005 PO (02:48)
--- NOTE | 2022-04-29 08:43 | Diagnostic Imaging Report ---
INDICATION: Right shoulder pain for 3 days. Time of Exam: 2:38 AM 3 views of the right shoulder demonstrate moderate amount of glenohumeral joint degenerative changes. There is acromioclavicular joint degenerative change too. Alignment is normal. There is amorphus calcific densities near the greater tuberosity consistent with calcific tendinitis of rotator cuff. No fracture or dislocation is seen. There is some narrowing of the acromiohumeral space. IMPRESSION: Chronic changes in the right shoulder, as described. No acute bony abnormality is detected. Dictated by: Dictated on workstation # [id number]
== END 2022-04-29 02:51 | disposition home or self-care (01) ==
LOC: EDUNIT# 01:46 → ER 01:49
DX: M25.511 Pain in right shoulder (principal); G47.30 Sleep apnea, unspecified; Z99.89 Dependence on other enabling machines and devices
CPT/HCPCS: 73030; 99282; A4565